=== PATIENT | male | born 1985 | race Caucasian/White ===

== ENCOUNTER 2017-04-05 03:31 | Emergency (ER) | payer SELFPAY ==
[2017-04-05 03:34] VITALS: BP 148/99; PULSE 115; RESP 15; TEMP 100.2; O2SAT 99
[2017-04-05] MEDS ORDERED: SODIUM CHLORIDE 0.9% FLUSH 10 ML FLUSH IVF PRN (04:00)
[2017-04-05 04:17] LABS: BACTERIA, URINE RARE /hpf; BLOOD, URINE NEG (NEG); COMMENT (UR) CULTURE INDICATED; CULTURE IF INDICATED CULTURE INDICATED; GLUCOSE,URINE NEG (NEG); KETONE, URINE NEG (NEG); NITRITE,URINE NEG (NEG); URINE COLOR COLORLESS (YELLW/STRAW)
[2017-04-05 04:23] VITALS: BP 137/82; PULSE 95; RESP 18; TEMP 99.9; O2SAT 97
[2017-04-05 04:24] LABS: AUTOMATED NEUTROPHIL # 11.1 TH/MM3 (1.8-7.7); BASOPHIL # 0.1 TH/MM3 (0-0.2); BASOPHIL % 0.5 % (0.0-2.0); EOSINOPHIL # 0.1 TH/MM3 (0-0.4); HEMATOCRIT 37.8 % (39.0-51.0); HEMO FLAGS DIFF FINAL; LYMPH % 11.2 % (9.0-44.0); LYMPHOCYTE # 1.5 TH/MM3 (1.0-4.8); MEAN CELL VOLUME 87.1 FL (80.0-100.0); MEAN CORPUSCULAR HEMOGLOBIN 30.3 PG (27.0-34.0); MEAN CORPUSCULAR HGB CONC 34.8 % (32.0-36.0); MONO % 5.3 % (0.0-8.0); PLATELET COUNT 285 TH/MM3 (150-450); RED BLOOD COUNT 4.33 MIL/MM3 (4.50-5.90); RED CELL DISTRIBUTION WIDTH 12.6 % (11.6-17.2); WHITE BLOOD COUNT 13.5 TH/MM3 (4.0-11.0)
[2017-04-05 04:28] LABS: BICARBONATE 30.2 MEQ/L (21.0-32.0); POTASSIUM 3.7 MEQ/L (3.5-5.1)
--- NOTE | 2017-04-05 04:53 | PD ---
HPI Chief Complaint: Complaint Time Seen by Provider: 03:50 Travel History International Travel<30 days: No Contact w/Intl Traveler<30days: No Traveled to known affect area: No History of Present Illness HPI 31-year-old male complains of gradual onset testicular pain with radiation to the lower abdomen. Duration is several hours. The pain is primarily in the right testicle associated with warmth. The pain is worse with movement. He's had no nausea vomiting or fever. He denies penile discharge. No dysuria reported. [facility] Past Medical History Medical History: Denies Significant Hx Past Surgical History Surgical History: No Previous Surgery Social History Alcohol Use: No Tobacco Use: Yes (1 pk daily) Allergies-Medications (Allergen,Severity, Reaction): Coded Allergies: No Known Allergies (Unverified , 04/05/17) Reported Meds & Prescriptions Reported Meds & Active Scripts Active Levofloxacin 750 Mg Tablet 750 Mg PO DAILY 6 Days Review of Systems Except as stated in HPI: all other systems reviewed are Neg General / Constitutional: No: Fever Physical Exam Narrative GENERAL: 31-year-old male well-nourished well-developed no acute distress GENITOURINARY: Testicular erythema and tenderness with right greater than left swelling SKIN: Focused skin assessment warm/dry. HEAD: Atraumatic. Normocephalic. EYES: Pupils equal and round. No scleral icterus. No injection or drainage. ENT: No nasal bleeding or discharge. Mucous membranes pink and moist. NECK: Trachea midline. No JVD. CARDIOVASCULAR: Regular rate and rhythm. No murmur appreciated. RESPIRATORY: No accessory muscle use. Clear to auscultation. Breath sounds equal bilaterally. GASTROINTESTINAL: Abdomen soft, non-tender, nondistended. Hepatic and splenic margins not palpable. MUSCULOSKELETAL: No obvious deformities. No clubbing. No cyanosis. No edema. NEUROLOGICAL: Awake and alert. No obvious cranial nerve deficits. Motor grossly within normal limits. Normal speech. PSYCHIATRIC: Appropriate mood and affect; insight and judgment normal. Data Data Last Documented VS Vital Signs Date Time Temp Pulse Resp B/P Pulse Ox O2 Delivery O2 Flow Rate FiO2 04/05/17 06:02 95 16 137/82 04/05/17 04:23 99.9 97 Room Air VS reviewed Orders Basic Metabolic Panel (Bmp) (04/05/17 03:50) Complete Blood Count With Diff (04/05/17 03:50) Urinalysis - C+S If Indicated (04/05/17 03:50) Gc And Chlamydia Pcr (04/05/17 03:50) Iv Access Insert/Monitor (04/05/17 03:50) Sodium Chloride 0.9% Flush (Ns Flush) (04/05/17 04:00) Urine Culture (04/05/17 04:05) Us Testicles W Doppler (04/05/17 04:35) Levofloxacin (Levaquin) (04/05/17 07:15) Labs Laboratory Tests Test 04/05/17 04:05 White Blood Count 13.5 TH/MM3 Red Blood Count 4.33 MIL/MM3 Hemoglobin 13.1 GM/DL Hematocrit 37.8 % Mean Corpuscular Volume 87.1 FL Mean Corpuscular Hemoglobin 30.3 PG Mean Corpuscular Hemoglobin 34.8 % Concent Red Cell Distribution Width 12.6 % Platelet Count 285 TH/MM3 Mean Platelet Volume 7.5 FL Neutrophils (%) (Auto) 82.0 % Lymphocytes (%) (Auto) 11.2 % Monocytes (%) (Auto) 5.3 % Eosinophils (%) (Auto) 1.0 % Basophils (%) (Auto) 0.5 % Neutrophils # (Auto) 11.1 TH/MM3 Lymphocytes # (Auto) 1.5 TH/MM3 Monocytes # (Auto) 0.7 TH/MM3 Eosinophils # (Auto) 0.1 TH/MM3 Basophils # (Auto) 0.1 TH/MM3 CBC Comment DIFF FINAL Differential Comment Urine Color COLORLESS Urine Turbidity CLEAR Urine pH 7.0 Urine Specific [place] 1.001 Urine Protein NEG mg/dL Urine Glucose (UA) NEG mg/dL Urine Ketones NEG mg/dL Urine Occult Blood NEG Urine Nitrite NEG Urine Bilirubin NEG Urine Urobilinogen LESS THAN 2.0 MG/DL Urine Leukocyte Esterase MOD Urine RBC 1 /hpf Urine WBC 10 /hpf Urine Bacteria RARE /hpf Microscopic Urinalysis Comment CULTURE INDICATED Sodium Level 136 MEQ/L Potassium Level 3.7 MEQ/L Chloride Level 99 MEQ/L Carbon Dioxide Level 30.2 MEQ/L Anion Gap 7 MEQ/L Blood Urea Nitrogen 8 MG/DL Creatinine 0.82 MG/DL Estimat Glomerular Filtration 108 ML/MIN Rate Random Glucose 105 MG/DL Calcium Level 8.9 MG/DL Chlamydia trachomatis DNA NOT DETECTED (PCR) Neisseria gonorrhoeae DNA NOT DETECTED (PCR) MDM Medical Decision Making Medical Screen Exam Complete: Yes Emergency Medical Condition: Yes Medical Record Reviewed: Yes Differential Diagnosis Epididymitis, orchitis, prostatitis, UTI, testicular torsion, varicocele Narrative Course CBC & BMP Diagram 04/05/17 04:05 UA: moderate LE, WBC 10 GC/Chlamydia: negative x 2 Last 24 hours Impressions Scrotum Ultrasound 04/05/17 0435 Signed Impressions: Service Date/Time: April 05:13 - CONCLUSION: 1. The testicles are normal in size and shape. There is symmetric appearance increased color flow. This is nonspecific. 2. Multiple left varices. Osei Calvert MD Overall the presentation is concerning for orchitis possibly epididymoorchitis early in its course and not quite present on ultrasound as of yet. This case was discussed with urology on-call. We'll send the patient home with [facility] and to follow-up with Dr. Mcarthur in 1 week. Plans discussed with patient at 7: 10 AM and he verbalized agreement with plan. Diagnosis Primary Impression: Orchitis Referrals: Riley Chavez MD 1 week Additional Instructions: IF PAIN OR SWELLING INCREASES PLEASE RETURN TO THE ER RIGHT AWAY. IF YOU DEVELOP A FEVER PLEASE RETURN TO THE ER RIGHT AWAY. Med/Other Pt SpecificInfo: Prescription(s) given Scripts Levofloxacin 750 Mg [id number] Mg PO DAILY 6 Days Ref 0 Prov:Mario Garcia MD 04/05/17 Disposition: 01 DISCHARGE HOME Condition: Stable Mario Garcia MD Apr 05, 2017 04:52
[2017-04-05 06:02] VITALS: BP 137/82; PULSE 95; RESP 16
[2017-04-05 06:03] LABS: CHLAMYDIA PCR NOT DETECTED (NOT DETECT); NEISSERIA PCR NOT DETECTED (NOT DETECT)
--- NOTE | 2017-04-05 06:14 | RADRPT ---
EXAM DATE/TIME: 04/05/2017 05:13 [place] COMPARISON: No previous studies available for comparison. INDICATIONS : Right testicular pain. MEDICAL HISTORY : Testicular pain. SURGICAL HISTORY : None. ENCOUNTER: Initial ACUITY: 1 day PAIN SCORE: 5/10 LOCATION: Bilateral testicles. MEASUREMENTS: RIGHT TESTICLE: 4.4 x 3.3 x 2.4cm LEFT TESTICLE: 3.7 x 3.3 x 2.7cm FINDINGS: RIGHT TESTICLE: Homogeneous echotexture without intra or extratesticular mass. Blood flow is symmetric and appears m ildly hyperemic. No hydrocele or varicocele. Epididymis is within normal limits. LEFT TESTICLE: Homogeneous echotexture without intra or extratesticular mass. Blood flow is symmetric and appears m ildly hyperemic. No hydrocele. There are multiple varices. Epididymis is within normal limits. SCROTUM: Within normal limits. CONCLUSION: 1. The testicles are normal in size and shape. There is symmetric appearance increased color flow. Th is is nonspecific. 2. Multiple left varices. Osei Calvert MD on April 05, 2017 at 6:10 Board Certified Radiologist. This report was verified electronically.
[2017-04-05] MEDS ORDERED: LEVO750T3 PO (07:13)
[2017-04-05] MEDS ORDERED: LEVOFLOXACIN 750 MG TAB PO ONE (07:15)
== END 2017-04-05 07:33 | disposition home or self-care (01) ==
LOC: NEPE 03:31
DX: N45.2 Orchitis (principal); F17.200 Nicotine dependence, unspecified, uncomplicated; Z79.899 Other long term (current) drug therapy
CPT/HCPCS: 76870; 80048; 81001; 85025; 87086; 87491; 87591; 93975; 99284